=== PATIENT | female | born 1990 | race Caucasian/White ===

== ENCOUNTER 2016-10-02 14:42 | Observation (INO) | payer BC ==
[2016-10-02] MEDS ORDERED: Aspirin Low Dose CHEW TAB* 81 MG PO ONE (15:38)
[2016-10-02 16:31] LABS: Hematocrit 41 % (35-47); Hemoglobin 13.6 g/dl (12.0-16.0); Mean Corpuscular HGB Conc 33 g/dl (31-36); Mean Corpuscular Hemoglobin 30 pg (27-31); Mean Corpuscular Volume 91 fL (80-97); Mean Platelet Volume 9 um3 (7.4-10.4); Red Blood Count 4.51 10^6/ul (4.0-5.4); Red Cell Distribution Width 13 % (10.5-15); White Blood Count 10.2 10^3/ul (3.5-10.8)
[2016-10-02 16:51] LABS: ALT 17 U/L (7-52); AST 22 U/L (13-39); Albumin 4.9 g/dL (3.2-5.2); Alkaline Phosphatase 85 U/L (34-104); Anion Gap 6 mmol/L (2-11); BUN/Creatinine Ratio 24.4 (8-20); Blood Urea Nitrogen 19 mg/dL (6-24); CO2 Carbon Dioxide 27 mmol/L (22-32); Calcium 9.6 mg/dL (8.6-10.3); Chloride 102 mmol/L (101-111); EGFR African American 113.9 (>60); EGFR Non-African American 88.6 (>60); Globulin 3.4 g/dL (2-4); Glucose 101 mg/dL (70-100); Potassium 3.9 mmol/L (3.5-5.0); Sodium 135 mmol/L (133-145); Total Protein 8.3 g/dL (6.4-8.9); Troponin I 0.01 ng/mL (<0.04)
--- NOTE | 2016-10-02 16:53 | RAD ---
Indication: Chest pain. History of tetralogy of Fallot. 2 views of the chest are reviewed. Patient is status post pulmonary valve replacement. No mediastinal shift is noted. Heart is of normal size and configuration. Lung correia are clear. IMPRESSION: No active cardiopulmonary disease is noted.
[2016-10-02] MEDS ORDERED: Iohexol 350* (CONTRAST) 500 ML MDV IV ONE (18:37)
--- NOTE | 2016-10-02 18:55 | RAD ---
Indication: Chest pain, cardiac surgery. Contrast: Administered 59.9 ml of OMNIPAQUE 350 mgi/ml CTA of the chest was performed after IV contrast administration. Coronal and sagittal reconstructed images were obtained. The pulmonary arterial tree is well opacified. There is no evidence of any filling defects present to suggest pulmonary embolus. There is mild dilatation of the descending aorta measuring up to 3.5 x 3.8 cm. No evidence of aortic dissection is noted. The heart demonstrates no pericardial effusion. The patient is status post pulmonary valve replacement. There is no mediastinal or hilar adenopathy noted. The trachea and major bronchi appear patent. The lung correia demonstrate no evidence of alveolar consolidation. The visualized abdominal organs are grossly unremarkable. IMPRESSION: NO EVIDENCE OF PULMONARY EMBOLUS IS NOTED. NO EVIDENCE OF ALVEOLAR CONSOLIDATION IS NOTED. PROMINENT ECTASIA OF THE ASCENDING AORTA MEASURING 3.8 X 3.5 CM WHICH IS EXPECTED FOR A PATIENT WITH TETRALOGY OF FALLOT. NO EVIDENCE OF AORTIC DISSECTION IS NOTED.
[2016-10-02] MEDS ORDERED: Ibuprofen TAB* 600 MG PO ONE (21:30)
--- NOTE | 2016-10-02 21:59 | ED ---
Juan Randle Anna, scribed for JaniceubrohithiLuis MD on 10/02/16 at 1906 . HPI Chest Pain - HPI Summary HPI Summary: Patient is a 26 y/o female coming to [facility] presenting with the sudden onset of constant CP that began at 1330 this afternoon. She was on a walk at the time, which is normal for her. She describes the severity of the pain as 5/10. She denies SOB, dizziness. The pain is exacerbated by deep breathing or sitting forward. She is s/p pulmonary valve and artery repair on 07/18/2016. Her history is significant for tachycardia, junctional rhythms and tetraology of fallot. She is followed up in [place], and all her follow-up appointments after her surgery have not revealed any acute concerns. Patient medications were reviewed this visit. - History of Current Complaint Chief Complaint: EDChestWallPain Time Seen by Provider: 10/02/16 18:44 Hx Obtained From: Patient Onset/Duration: Started Hours Ago, Still Present Timing: Constant Initial Severity: Moderate Current Severity: Moderate Pain Intensity: 5 Pain Scale Used: 0-10 Numeric - Allergy/Home Medications Allergies/Adverse Reactions: Allergies Allergy/AdvReac Type Severity Reaction Status Date / Time No Known Allergies Allergy Verified 10/02/16 14:58 PMH/Surg Hx/FS Hx/Imm Hx Endocrine/Hematology History: Reports: Hx Thyroid Disease - hypothyroidism, Hx Anemia - Since surgery 07/18/2016 Denies: Hx Diabetes Cardiovascular History: Reports: Other Cardiovascular Problems/Disorders - tetralogy of fallot Denies: Hx Hypertension, Hx Pacemaker/ICD Respiratory History: Denies: Hx Asthma Musculoskeletal History: Denies: Hx Rheumatoid Arthritis, Hx Osteoporosis, Hx Scoliosis Sensory History: Denies: Hx Hearing Aid Neurological History: Denies: Hx Headaches, Other Neuro Impairments/Disorders Psychiatric History: Denies: Hx Panic Disorder - Surgical History Surgery Procedure, Year, and Place: OPEN HEART AT 4 MONTHS FOR VENTRICULAR COMMUNICATION,UMBILICAL HERNIA REPAIR 2010 Infectious Disease History: Denies: Traveled Outside the [place] in Last 30 Days - Family History Known Family History: Positive: Other - hypothyroidism - Social History Occupation: Employed Full-time Smoking Status (MU): Never Smoked Tobacco Have You Smoked in the Last Year: No Review of Systems Positive: Chest Pain Negative: Shortness Of Breath Neurological: Other - Denies dizziness All Other Systems Reviewed And Are Negative: Yes Physical Exam Triage Information Reviewed: Yes Vital Signs On Initial Exam: Initial Vitals Temp Pulse Resp BP Pulse Ox 98.5 F 54 18 131/87 100 10/02/16 14:53 10/02/16 14:53 10/02/16 14:53 10/02/16 14:53 10/02/16 14:53 Vital Signs Reviewed: Yes Appearance: Positive: Well-Appearing, No Pain Distress - nontoxic, Well- Nourished Skin: Positive: Warm, Skin Color Reflects Adequate Perfusion, Dry, Other - Well- healed mid-sternal scar Head/Face: Positive: Normal Head/Face Inspection Eyes: Positive: EOMI, ADRIEN, Conjunctiva Clear ENT: Positive: Pharynx normal, TMs normal Neck: Positive: Supple, Nontender Respiratory/Lung Sounds: Positive: Clear to Auscultation - good sounds bilaterally, Breath Sounds Present. Negative: Rales, Rhonchi, Wheezes Cardiovascular: Positive: RRR, Murmur - holosystolic murmur, S1, S2. Negative: Rub - None appreciated, Other - no gallop Abdomen Description: Positive: Nontender, Soft. Negative: Distended, Guarding, Other: - no rebound Bowel Sounds: Positive: Present Musculoskeletal: Positive: Normal, Strength/ROM Intact Neurological: Positive: Normal, Sensory/Motor Intact, Alert, Oriented to Person Place, Time. Negative: Cerebellar Dysfunction Psychiatric: Positive: Affect/Mood Appropriate Diagnostics - Vital Signs Vital Signs Temp Pulse Resp BP Pulse Ox 10/02/16 16:38 98.1 F 58 18 110/61 100 10/02/16 14:53 98.5 F 54 18 131/87 100 - Laboratory Lab Results: Lab Results 10/02/16 10/02/16 10/02/16 Range/Units 16:12 16:12 16:12 WBC 10.2 (3.5-10.8) 10^3/ul RBC 4.51 (4.0-5.4) 10^6/ul Hgb 13.6 (12.0-16.0) g/dl Hct 41 (35-47) % MCV 91 (80-97) fL MCH 30 (27-31) pg MCHC 33 (31-36) g/dl RDW 13 (10.5-15) % Plt Count 234 (150-450) 10^3/ul MPV 9 (7.4-10.4) um3 Neut % (Auto) 71.4 (38-83) % Lymph % (Auto) 18.7 L (25-47) % [place] % (Auto) 6.0 (1-9) % Eos % (Auto) 3.0 (0-6) % Baso % (Auto) 0.9 (0-2) % Absolute Neuts (auto) 7.3 (1.5-7.7) 10^3/ul Absolute Lymphs (auto) 1.9 (1.0-4.8) 10^3/ul Absolute Monos (auto) 0.6 (0-0.8) 10^3/ul Absolute Eos (auto) 0.3 (0-0.6) 10^3/ul Absolute Basos (auto) 0.1 (0-0.2) 10^3/ul Absolute Nucleated RBC 0.01 10^3/ul Nucleated RBC % 0.1 Sodium 135 (133-145) mmol/L Potassium 3.9 (3.5-5.0) mmol/L Chloride 102 (101-111) mmol/L Carbon Dioxide 27 (22-32) mmol/L Anion Gap 6 (2-11) mmol/L BUN 19 (6-24) mg/dL Creatinine 0.78 (0.51-0.95) mg/dL Est GFR ( Amer) 113.9 (>60) Est GFR (Non-Af Amer) 88.6 (>60) BUN/Creatinine Ratio 24.4 H (8-20) Glucose 101 H (70-100) mg/dL Lactic Acid 0.6 (0.5-2.0) mmol/L Calcium 9.6 (8.6-10.3) mg/dL Total Bilirubin 0.50 (0.2-1.0) mg/dL AST 22 (13-39) U/L ALT 17 (7-52) U/L Alkaline Phosphatase 85 (34-104) U/L Troponin I 0.01 (<0.04) ng/mL Total Protein 8.3 (6.4-8.9) g/dL Albumin 4.9 (3.2-5.2) g/dL Globulin 3.4 (2-4) g/dL Albumin/Globulin Ratio 1.4 (1-3) Result Diagrams: 10/02/16 16:12 10/02/16 16:12 Lab Statement: Any lab studies that have been ordered have been reviewed, and results considered in the medical decision making process. - Radiology CXR Xray Interpretation: No Acute Changes Radiology Interpretation Completed By: Radiologist - CT Chest CTA CT Interpretation: No Acute Changes CT Interpretation Completed By: Radiologist - IMPRESSION: NO EVIDENCE OF PULMONARY EMBOLUS IS NOTED. NO EVIDENCE OF ALVEOLAR CONSOLIDATION IS NOTED. PROMINENT ECTASIA OF THE ASCENDING AORTA MEASURING 3.8 X 3.5 CM WHICH IS EXPECTED FOR A PATIENT WITH TETRALOGY OF FALLOT. NO EVIDENCE OF AORTIC DISSECTION IS NOTED. - EKG 1446 Cardiac Rate: Bradycardia - 48 bpm EKG Rhythm: Sinus Bradycardia EKG Interpretation: RBBB. No acute ischemic changes. Re-Evaluation - Re-Evaluation First Eval Re-Evaluation Time: 20:29 Comment: Discussed results and plan of care with patient. Patient is agreeable with plan. Second Eval Re-Evaluation Time: 21:12 Comment: Discussed updated plan following conversation with Dr. Levy, bond broker. Patient is agreeable with plan. Chest Pain Course/Dx - Course Assessment/Plan: Patient is a 26 y/o female coming to [facility] presenting with the sudden onset of constant CP that began at 1330 this afternoon. Labs reveal BUN/ Creatinine ratio of 24.4 and glucose of 101. Initial troponin is 0.01. Repeat troponin is 0.05. EKG reveals SB at 48 bpm with RBBB and no acute ischemic changes. CXR reveals no acute changes. Chest CTA reveals no evidence of pulmonary embolus or alveolar consolidation. Prominent ectasia of the ascending aorta is expected. No evidence of aortic dissection. Discussed care with Dr. Buchanan (patient's bond broker, [facility]) at 1957. He recommends NSAID with echocardiogram along with a third troponin. If the echo shows no effusion and the troponin is stable, the patient can be discharged to follow up with him. Discussed care with Dr. Levy (bond broker) at 2102. Discussed need for echocardiography. Patient is hemodynamically stable, and he would rather have the echo techs complete this in the morning. Patient will be placed in observation pending echo and another set of cardiac enzymes. Discussed patient care with Dr. Hankins (hospitalist) at 2109. Agrees to admit patient for observation. - Diagnoses Provider Diagnoses: Chest pain, Congenital heart disease - Provider Notifications Discussed Care Of Patient With: Dr. Buchanan (patient's bond broker, [facility]) at 1957. He recommends NSAID with echocardiogram along with a third troponin. If the echo shows no effusion and the troponin is stable , the patient can be discharged to follow up with him. Dr. Levy (bond broker) at 2102. Discussed need for echocardiography. Patient is hemodynamically stable , and he would rather have the echo techs complete this in the morning. Patient will be placed in observation pending echo and another set of cardiac enzymes. Discussed patient care with Dr. Hankins (hospitalist) at 2109. Agrees to admit patient for observation. Discharge - Discharge Plan Condition: Fair Disposition: ADMITTED TO [facility] Referrals: Jerald Martinez MD [Primary Care Provider] - The documentation as recorded by the Juan benitez Anna accurately reflects the service I personally performed and the decisions made by Rg christy Afoma Frances, MD.
[2016-10-02 22:09] LABS: Erythrocyte Sed Rate 9 mm/Hr (0-14)
--- NOTE | 2016-10-02 23:24 | HP ---
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 She denies SOB, fever, N/V, palpitations, light-headedness, or other issues. She has been taking allergy medications recently for Spring allergies, but denies recent illness or infection. After an hour of the pain not relenting she became concerned enough to present for evaluation. Work up reveals stable vitals, essentially normal labs including a CRP <1. Initial troponin was 0.01 with follow up of 0.05 and 3rd result of 0.01 indicating a lab error on the 2nd draw. ECG is sinus RBBB bradycardia rate 48, no ischemia, no comparison. Dr Diez spoke with Dr López, waste recycler at [facility] who reviewed her case and was comfortable with her being discharged after an ECHO did not show significant pericardial effusion. Dr Levy was then consulted, but preferred an official US in the AM as opposed to coming in to perform a bedside exam. As such she will be observe overnight on telemetry. 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 recent PA repair & PV replacement : sinus & junctional tachycardia : hypothyroidism Ambulatory Orders Aspirin [Aspirin Adult Low Strengt] 81 mg PO BEDTIME 10/02/16 Ferrous Sulfate [Fe Tabs] 325 mg PO BEDTIME 10/02/16 Levothyroxine TAB* [Synthroid TAB*] 75 mcg PO 0600 10/02/16 Allergies No Known Allergies Allergy (Verified 10/02/16 14:58) PSurgHx Tetrology of Fallot repair Pulmonary artery repair and bovine pulmonary valve replacement 07/2016 L knee arthroscopy umbilical hernia repair SocHx: no tobacco or recreational drugs, mild alcohol; works for [employer] , has been accepted to [employer] in [place] & is moving to start soon; lives with her boyfriend, no children; her cardiac history has not restricted her activities, she reports always being able to keep up with other children and friends, 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; full code status FamHx: Father: asthma ROS: as above, otherwise reviewed and all were negative Constitutional: NAD, normally developed, well-nourished white female vitals: Vital Signs Temp 36.6 C 10/02/16 19:13 Pulse 59 10/03/16 00:01 Resp 19 10/03/16 00:01 BP 104/55 10/03/16 00:01 Pulse Ox 98 10/03/16 00:01 Intake & Output 10/02/16 10/02/16 10/03/16 11:59 23:59 11:59 Weight 58.06 kg HEENM: atraumatic; sclera/conjunctiva: non-icteric/clear; hearing: clinically intact; oropharynx: clear, mucosa moist Neck: soft tissue: non-tender; thyroid: normal Pulmonary: clear to auscultation bilaterally, good aeration, no accessory muscle use CV: BR/RR, normal S1S2, no friction rubs appreciated at this time, no carotid bruit, no jugular venous distention, 2+ B DP/PT, no edema Abdominal: soft, non-distended, non-tender, no rebound/guarding/rigidity, normoactive bowel sounds, no hepatosplenomegaly or masses, no costovertebral angle tenderness Musculoskeletal: general: grossly intact; gait: stable Integumental: healthy healing sternotomy incision; normal appearance and texture of exposed skin Psychiatric orientation: AA&O to PPS affect: calm mood: pleasant eye contact: good content: reliable responses: timely insight: good Testing: Lab Results 10/02/16 10/02/16 10/02/16 Range/Units 16:12 16:12 16:12 WBC 10.2 (3.5-10.8) 10^3/ul RBC 4.51 (4.0-5.4) 10^6/ul Hgb 13.6 (12.0-16.0) g/dl Hct 41 (35-47) % MCV 91 (80-97) fL MCH 30 (27-31) pg MCHC 33 (31-36) g/dl RDW 13 (10.5-15) % Plt Count 234 (150-450) 10^3/ul MPV 9 (7.4-10.4) um3 Neut % (Auto) 71.4 (38-83) % Lymph % (Auto) 18.7 L (25-47) % [place] % (Auto) 6.0 (1-9) % Eos % (Auto) 3.0 (0-6) % Baso % (Auto) 0.9 (0-2) % Absolute Neuts (auto) 7.3 (1.5-7.7) 10^3/ul Absolute Lymphs (auto) 1.9 (1.0-4.8) 10^3/ul Absolute Monos (auto) 0.6 (0-0.8) 10^3/ul Absolute Eos (auto) 0.3 (0-0.6) 10^3/ul Absolute Basos (auto) 0.1 (0-0.2) 10^3/ul Absolute Nucleated RBC 0.01 10^3/ul Nucleated RBC % 0.1 ESR 9 (0-14) mm/Hr Sodium 135 (133-145) mmol/L Potassium 3.9 (3.5-5.0) mmol/L Chloride 102 (101-111) mmol/L Carbon Dioxide 27 (22-32) mmol/L Anion Gap 6 (2-11) mmol/L BUN 19 (6-24) mg/dL Creatinine 0.78 (0.51-0.95) mg/dL Est GFR ( Amer) 113.9 (>60) Est GFR (Non-Af Amer) 88.6 (>60) BUN/Creatinine Ratio 24.4 H (8-20) Glucose 101 H (70-100) mg/dL Lactic Acid 0.6 (0.5-2.0) mmol/L Calcium 9.6 (8.6-10.3) mg/dL Total Bilirubin 0.50 (0.2-1.0) mg/dL AST 22 (13-39) U/L ALT 17 (7-52) U/L Alkaline Phosphatase 85 (34-104) U/L Troponin I 0.01 (<0.04) ng/mL C-Reactive Protein < 1.00 (< 5.00) mg/L Total Protein 8.3 (6.4-8.9) g/dL Albumin 4.9 (3.2-5.2) g/dL Globulin 3.4 (2-4) g/dL Albumin/Globulin Ratio 1.4 (1-3) Beta HCG, Quant < 0.60 mIU/mL 10/02/16 10/02/16 Range/Units 19:15 21:37 WBC (3.5-10.8) 10^3/ul RBC (4.0-5.4) 10^6/ul Hgb (12.0-16.0) g/dl Hct (35-47) % MCV (80-97) fL MCH (27-31) pg MCHC (31-36) g/dl RDW (10.5-15) % Plt Count (150-450) 10^3/ul MPV (7.4-10.4) um3 Neut % (Auto) (38-83) % Lymph % (Auto) (25-47) % [place] % (Auto) (1-9) % Eos % (Auto) (0-6) % Baso % (Auto) (0-2) % Absolute Neuts (auto) (1.5-7.7) 10^3/ul Absolute Lymphs (auto) (1.0-4.8) 10^3/ul Absolute Monos (auto) (0-0.8) 10^3/ul Absolute Eos (auto) (0-0.6) 10^3/ul Absolute Basos (auto) (0-0.2) 10^3/ul Absolute Nucleated RBC 10^3/ul Nucleated RBC % ESR (0-14) mm/Hr Sodium (133-145) mmol/L Potassium (3.5-5.0) mmol/L Chloride (101-111) mmol/L Carbon Dioxide (22-32) mmol/L Anion Gap (2-11) mmol/L BUN (6-24) mg/dL Creatinine (0.51-0.95) mg/dL Est GFR ( Amer) (>60) Est GFR (Non-Af Amer) (>60) BUN/Creatinine Ratio (8-20) Glucose (70-100) mg/dL Lactic Acid (0.5-2.0) mmol/L Calcium (8.6-10.3) mg/dL Total Bilirubin (0.2-1.0) mg/dL AST (13-39) U/L ALT (7-52) U/L Alkaline Phosphatase (34-104) U/L Troponin I 0.05 H* 0.01 (<0.04) ng/mL C-Reactive Protein (< 5.00) mg/L Total Protein (6.4-8.9) g/dL Albumin (3.2-5.2) g/dL Globulin (2-4) g/dL Albumin/Globulin Ratio (1-3) Beta HCG, Quant mIU/mL ECG, personally reviewed: sinus RBBB bradycardia rate 48, no ischemia, no comparison CXR, personally reviewed: IMPRESSION: No active cardiopulmonary disease is noted. CTA chest, personally reviewed: IMPRESSION: NO EVIDENCE OF PULMONARY EMBOLUS IS NOTED. NO EVIDENCE OF ALVEOLAR CONSOLIDATION IS NOTED. PROMINENT ECTASIA OF THE ASCENDING AORTA MEASURING 3.8 X 3.5 CM WHICH IS EXPECTED FOR A PATIENT WITH TETRALOGY OF FALLOT. NO EVIDENCE OF AORTIC DISSECTION IS NOTED. Impression: 26F HX Tetrology of Fallot repair 1989, PA repair and bovine PV replacement 07/2016 presenting with chest pain and concern for pericarditis DIAGNOSIS & PLAN Primary chest pain r/o pericarditis : Loius Levy MD cardiology consulted by ED, will eval in AM : check ECHO in AM : added CRP to ED labs, result negative : telemetry : NSAIDS for pain : supportive care Secondary hypothyroidism : continue levothyroxine recurrent laryngeal nerve injury : continue outpatient speech therapy Admission Rational: CDU observation for r/o pericarditis DVTp: NIAD Code Status: full
[2016-10-02] MEDS ORDERED: Acetaminophen TAB* 325 MG PO PRN (23:27)
[2016-10-02] MEDS ORDERED: Ondansetron INJ* 2 MG/ML VIAL IV PRN (23:28)
[2016-10-02] MEDS ORDERED: Melatonin (NF) 3 MG TAB PO PRN (23:28)
[2016-10-02] MEDS ORDERED: Ketorolac INJ* 15 MG/ML 1 ML VIAL IV PRN (23:28)
[2016-10-02] MEDS ORDERED: Morphine INJ* 2 MG/ML 1 ML SYRINGE IV PRN (23:28)
[2016-10-02 23:46] LABS: C Reactive Protein < 1.00 mg/L (< 5.00)
[2016-10-03] MEDS: Omeprazole CAP* 20 MG PO SCH ×2 (05:49→05:50)
[2016-10-03] MEDS ORDERED: Levothyroxine TAB* 75 MCG TAB PO SCH (06:15)
--- NOTE | 2016-10-03 08:51 | PN ---
Subjective - Subjective Reason for Note: Progress Note History: Brenda Ngo is a 26 year old primary care patient at my office. I have gone over her presentation with the patient and with Dr. Aldo Stanley's admitting history and physical. She has a history of tetralogy of Fallot and had cardiac surgery as an . She had a second surgery 07/18/[address] López at [facility]. They placed a pulmonic prosthetic valve and "unkinked" her pulmonary artery. She has noticed much more energy since the surgery. 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 This is improving. She has been back at work for 1 month. She went for a longer walk than usual at lunchtime at [facility]. After this she developed 5/10 chest pain that radiated around both sides. 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 It was not associated with nausea, diaphoresis, palpitations, light headedness. It was exacerbated by sitting forward, positional changes and coughing. The pain went away at 2 am this morning. She has had no edema, fever, sweats, paroxysmal nocturnal dyspnea, cyanotic attacks, orthopnea. She is feeling well. 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 Troponin I above reference range (Acute) R74.8 History of hepatitis C (Chronic) Z86.19 Primary hypothyroidism (Chronic) E03.9 Pulmonary valve replaced (Chronic) Z95.2 Recurrent laryngeal nerve palsy (Chronic) J38.00 Right bundle branch block (Chronic) I45.10 Sinus bradycardia (Chronic) R00.1 Tetralogy of Fallot (Chronic) Q21.3 Current Medications: Current Medications Acetaminophen (Tylenol Tab*) 650 mg PO Q6H PRN PRN Reason: FEVER/PAIN Aspirin (Aspirin Low Dose Tab*) 81 mg PO BEDTIME SON Ketorolac Tromethamine (Toradol Inj*) 15 mg IV Q6H PRN PRN Reason: PAIN Levothyroxine Sodium (Synthroid Tab*) 75 mcg PO 0600 [facility] Last Admin: 10/03/16 06:19 Dose: 75 mcg Melatonin (Melatonin (Nf)) 3 mg PO BEDTIME PRN; Protocol PRN Reason: Sleep Morphine Sulfate (Morphine Inj (Syringe)*) 2 mg IV Q4H PRN PRN Reason: PAIN - MILD Omeprazole (Prilosec Cap*) 20 mg PO DAILY@0600 [facility] Last Admin: 10/03/16 05:50 Dose: Not Given Ondansetron HCl (Zofran Inj*) 4 mg IV Q6H PRN PRN Reason: NAUSEA Home Medications: Home Medications Medication Instructions Recorded Confirmed Type Aspirin [Aspirin Adult Low Strengt] 81 mg PO BEDTIME 10/02/16 10/02/16 History Ferrous Sulfate [Fe Tabs] 325 mg PO BEDTIME 10/02/16 10/02/16 History Levothyroxine TAB* [Synthroid TAB*] 75 mcg PO 0600 10/02/16 10/02/16 History Allergies: Allergies Allergy/AdvReac Type Severity Reaction Status Date / Time No Known Allergies Allergy Verified 10/02/16 14:58 Objective - Vital Signs Vital Signs: Vital Signs 10/02/16 10/03/16 10/03/16 23:59 00:00 00:01 Temperature Pulse Rate 62 59 Respiratory 18 14 19 Rate Blood Pressure 104/55 (mmHg) O2 Sat by Pulse 98 98 Oximetry 10/03/16 10/03/16 10/03/16 00:07 00:09 00:20 Temperature 98.6 F 97.7 F Pulse Rate 75 62 Respiratory 15 18 Rate Blood Pressure 112/66 (mmHg) O2 Sat by Pulse 98 99 Oximetry 10/03/16 02:52 Temperature 97.5 F Pulse Rate 41 Respiratory 16 Rate Blood Pressure 102/60 (mmHg) O2 Sat by Pulse 100 Oximetry - Intake and Output Intake and Output: Intake & Output 09/30/16 10/01/16 10/02/16 10/03/16 11:59 11:59 11:59 11:59 Intake Total 0 Balance 0 Weight 124 lb 3.2 oz Intake: Oral 0 Other: # Bowel Movements 0 # Voids 0 Intake and Output Start: 10/02/16 23: 59 Freq: DAILY@0600,1400,2200 Status: Active Document 10/03/16 06:00 [id number] (Rec: 10/03/16 06:[id number] [facility]-[id number]) - Physical Exam General: No Cyanosis, No Anemia, No Jaundice, No Clubbing Skin: Normal: Rash Lungs and Chest: Yes: Chest Expansion Full, Chest Expansion Symetrica, Percussion Note Resonant, Vessicular Breath Sounds. No: Crackles, Wheezes Heart Rate and Rhythm: Regular JVP: Not Elevated Additional Cardiovascular: Yes: Normal Heart Sounds. No: Heart Murmur, Rub, Pedal Edema Abdominal Exam: Yes: Soft, Bowel Sounds Present. No: Distention, Rigidity, Abdominal Tenderness Results - Results Lab Results: Laboratory Tests 10/02/16 10/02/16 10/02/16 16:12 16:12 19:15 WBC 10.2 Hgb 13.6 Hct 41 Plt Count 234 ESR 9 Troponin I 0.01 0.05 H* C-Reactive Protein < 1.00 10/02/16 21:37 WBC Hgb Hct Plt Count ESR Troponin I 0.01 C-Reactive Protein Radiology Results: Patient Name: BRENDA NGO Medical Record#: [id number] Ordering Physician: Kenn Moulton MD Acct.#: [id number] : 1990 Age: 26 Sex: F Location: EMERGENCY DEPARTMENT Exam Date: 10/02/161537 ADM Status: [facility] ER Order Information: CTA CHEST Accession Number: [id number] CPT: 02294 Indication: Chest pain, cardiac surgery. Contrast: Administered 59.9 ml of OMNIPAQUE 350 mgi/ml CTA of the chest was performed after IV contrast administration. Coronal and sagittal reconstructed images were obtained. The pulmonary arterial tree is well opacified. There is no evidence of any filling defects present to suggest pulmonary embolus. There is mild dilatation of the descending aorta measuring up to 3.5 x 3.8 cm. No evidence of aortic dissection is noted. The heart demonstrates no pericardial effusion. The patient is status post pulmonary valve replacement. There is no mediastinal or hilar adenopathy noted. The trachea and major bronchi appear patent. The lung correia demonstrate no evidence of alveolar consolidation. The visualized abdominal organs are grossly unremarkable. IMPRESSION: NO EVIDENCE OF PULMONARY EMBOLUS IS NOTED. NO EVIDENCE OF ALVEOLAR CONSOLIDATION IS NOTED. PROMINENT ECTASIA OF THE ASCENDING AORTA MEASURING 3.8 X 3.5 CM WHICH IS EXPECTED FOR A PATIENT WITH TETRALOGY OF FALLOT. NO EVIDENCE OF AORTIC DISSECTION IS NOTED. <Electronically signed by Mitzy Vasquez MD in OV> 10/02/161850 Dictated By: Mitzy Vasquez MD Dictated Date/Time: 10/02/161850 Transcribed Date/Time: 10/02/161847 Copy to: CC:Jerald Martinez MD; Luis Diez MD; Kenn Moulton MD Imaging - [facility] Imaging - [facility] Imaging - [facility] [address] [address] ph [phone]) ph ([phone]) ph ([phone]) 1 of EKG Report: EKG - sinus bradycardia, right bundle branch block (I reviewed the EKG) Assessment - Problem List Assessment: Patient Problems Chest pain (Acute) Bayron's syndrome (Acute) Troponin I above reference range (Acute) History of hepatitis C (Chronic) Primary hypothyroidism (Chronic) Pulmonary valve replaced (Chronic) Recurrent laryngeal nerve palsy (Chronic) Right bundle branch block (Chronic) Sinus bradycardia (Chronic) Tetralogy of Fallot (Chronic) Plan: Chest pain (Acute)/Bayron's syndrome (Acute)/Troponin I above reference range (Acute) From the history it is likely this is Bayron's syndrome. She doesn' t have a pleural effusion and we are awaiting the results of this morning's transthoracic echocardiogram to determine if this is pericarditis. I note she has a slight bump in her troponin I levels- the 0.05 reading is likely a lab error. I have spoke to Dr. Lisa who will look at the transthoracic echocardiogram and consult on the patient as we don't want to prematurely close our minds to the complex pathophysiological possibilities for this patient. I note her WBC, CRP and Sed rate are not elevated - this surprises me as they are mostly elevated with this syndrome. Dr. Lisa will work through a more extensive differential diagnosis. History of hepatitis C (Chronic) secondary diagnosis Primary hypothyroidism (Chronic) secondary diagnosis - I will check her TSH Pulmonary valve replaced (Chronic) secondary diagnosis Recurrent laryngeal nerve palsy (Chronic) secondary diagnosis Right bundle branch block (Chronic) secondary diagnosis Sinus bradycardia (Chronic) secondary diagnosis Tetralogy of Fallot (Chronic) secondary diagnosis I spoke to the patient and her mother. She agrees with the plan. She hopes to be discharged today.
[2016-10-03] MEDS ORDERED: Aspirin TAB* 325 MG PO PRN (10:46)
--- NOTE | 2016-10-03 16:29 | PN ---
Progress Note - Progress Note Note: Discussion with Dr. Kassandra Lisa: Less likely to be Bayron's syndrome as sed rate/CRP normal. Could be musculo-skeletal. Could be GERD. She states the transthoracic echocardiogram is fine - sending a copy to her upholsterer outside at [facility]. Recommends she can go home and use NSAID sparingly for pain.
[2016-10-03 16:51] VITALS: BP 107/57
--- NOTE | 2016-10-03 17:54 | ECHO ---
Patient: BRENDA NGO [facility] Rec#: [id number] : 1990 Date: 10/03/2016 Age: 26y Height: 167.64 cm / 66.0 in Weight: 58.06 kg / 128.0 lbs Sex: F BSA: 1.65 Room#: 439 Admit Date#: 10/02/2016 Type: Inpatient Referring: Aldo Stanley MD Reading: Kassandra Lisa MD [employer] Line: Talia Montesinos,RDCS,RDMS CC: Jerald Martinez MD Transthoracic Echocardiogram Indication: Chest Pain BP: 102/61 HR: 48 Rhythm: Bradycardia Indications Chest Pain Findings History: PV replacement (bovine), PA repair, Tetrology of Fallot. Technical Comments: The study quality is good. Left Ventricle: The left ventricular chamber size is normal. There is no left ventricular hypertrophy. The estimated ejection fraction is 50-55%. Ventricular septal wall motion has a post-operative appearance. Echo bright in the region of the membranous septum and hypokinesis consistant with VSD repair. Normal left ventricular diastolic filling is observed. Left Atrium: The left atrial chamber size is normal. Right Ventricle: The right ventricle is mildly dilated. The right ventricular global systolic function is mildly reduced. Right Atrium: The right atrial cavity size is normal. Aortic Valve: There is no evidence of aortic valve thickening. Systolic excursion of the aortic valve is normal. There is a trace of aortic regurgitation. There is no evidence of aortic stenosis. Mitral Valve: The mitral valve leaflets do not appear thickened. Mitral valve leaflet mobility appears normal. There is a trace of mitral regurgitation. There is no evidence of mitral stenosis. Tricuspid Valve: The tricuspid valve leaflets are not thickened. There is mild tricuspid regurgitation. The right ventricular systolic pressure is estimated at 37 mmHg. There is evidence of mild pulmonary hypertension. Pulmonic Valve: There is mild pulmonic regurgitation. A bio-prosthetic pulmonic valve is present. The bio-prosthetic pulmonic valve appears to be functioning normally. Pericardium: There is no significant pericardial effusion. Aorta: The aortic root appears normal. There is no dilatation of the aortic arch. Pulmonary Artery: The main pulmonary artery appears normal. Venous: The inferior vena cava appears normal. There is a greater than 50% respiratory change in the inferior vena cava dimension. Conclusions The left ventricular chamber size is normal. Ventricular septal wall motion has a post-operative appearance, otherwise normal systolic function. The estimated ejection fraction is 50-55%. Normal left ventricular diastolic filling is observed. The right ventricular global systolic function is mildly reduced. The right ventricle is mildly dilated. There is a trace of aortic regurgitation, leaflets thin with good excursion. There is a trace of mitral regurgitation. There is mild tricuspid regurgitation. A bio-prosthetic pulmonic valve is present with mild pulmonic regurgitation (central), peak velocity 1.7 m/s. The right ventricular systolic pressure is estimated at 37 mmHg, mildly elevated. No abnormal pericardial fluid collection noted. No evidence of inflow or outflow respiratory variation to suggest constrictive physiology: Resp variation MV is 5% LVOT is 4% TV is 8%. Normal IVC diameter with greater than 50% respiratory variation. Prior echos not available to compare. Measurements Name Value Normal Range RVIDd (AP) 2D 3.4 cm (0.9 - 2.6) RVDdMajor (2D) 4.3 cm (2.2 - 4.4) RAd ISD 4CH 3.6 cm (3.4 - 4.9) RA (A4C)W 3.3 cm (2.9 - 4.6) IVSd (2D) 1 cm (0.6 - 1) LVPWd (2D) 1 cm (0.6 - 1) LVIDd (2D) 4.2 cm (3.6 - 5.4) LVIDs (2D) 3.1 cm - LV FS (2D) 26 % (25 - 45) Aortic Annulus 2.2 cm (1.4 - 2.6) Ao root diameter (2D) 3.5 cm (2.1 - 3.5) Ascending Ao 3.2 cm (2.1 - 3.4) Aortic arch 2.6 cm (1.8 - 3.4) LA dimension (AP) 2D 3.6 cm (2.3 - 3.8) LAd ISD 4CH 4.8 cm (2.9 - 5.3) LA ISD 4CH W 4.1 cm (2.5 - 4.5) Name Value Normal Range LA ESV SP 4CH (A/L) 52.43 ml - LA ESV SP 2CH (A/L) 54.96 ml - LA ESV BP (A/L) 54.2 ml - LA ESV BP (A/L) index 33 ml/m2 - LA ESV SP 4CH (MOD) 48.48 ml - LA ESV SP 2CH (MOD) 52.55 ml - Name Value Normal Range MV E-wave Vmax 1.2 m/sec - MV deceleration time 198 msec - MV A-wave Vmax 0.4 m/sec - MV E:A ratio 3 ratio - P. vein S-wave Vmax 0.4 m/sec - P. vein D-wave Vmax 0.9 m/sec - P. vein S:D Vmax ratio 0.5 ratio - P. vein A-wave duration 106.1 msec - LV septal e' Vmax 0.08 m/sec - LV lateral e' Vmax 0.13 m/sec - LV E:e' septal ratio 15 ratio - LV E:e' lateral ratio 9.2 ratio - Name Value Normal Range AV Vmax 1.1 m/sec - AV VTI 26 cm - AV peak gradient 5 mmHg - AV mean gradient 2.9 mmHg - LVOT Vmax 1 m/sec - LVOT VTI 21.8 cm - LVOT peak gradient 4 mmHg - LVOT mean gradient 2 mmHg - CATHRYN Vmax 1.1 m/sec - Name Value Normal Range MV Vmax 1.4 m/sec - MV VTI 39 cm - MV peak gradient 8 mmHg - MV mean gradient 1 mmHg - MV PHT 67 msec - MVA (PHT) 3.3 cm2 - Name Value Normal Range TR Vmax 2.7 m/sec - TR peak gradient 29 mmHg - RAP 8 mmHg - RVSP 37 mmHg - IVC diameter 1.6 cm - Name Value Normal Range PV Vmax 1.7 m/sec - PV peak gradient 11.6 mmHg - RVOT diameter 1.9 cm -
[2016-10-03] MEDS ORDERED: Aspirin Low Dose CHEW TAB* 81 MG PO SCH (21:00)
--- NOTE | 2016-10-04 01:31 | CONS ---
CONSULTATION REPORT: DATE OF CONSULT: 10/03/16 REASON FOR CONSULTATION: Chest pain and congenital heart disease. HISTORY OF PRESENT ILLNESS: Francisca Liriano is a very pleasant 26-year-old young woman with a tetralogy of Fallot, she distantly underwent repair in 1989, but more recently in July, she underwent a pulmonic valve replacement and pulmonary artery repair. This was complicated by recurrent laryngeal nerve injury and she was left with a hoarse voice and she also had sinus bradycardia with a junctional rhythm and according to her mother, some nonsustained ventricular tachycardia postoperatively. Most recently, the patient has been back to work and feeling well. Yesterday, she had lunch and was walking with a friend. The walk went fine until she developed some low chest pain/epigastric discomfort that radiated across the lower chest and she points to the diaphragm area and had a positional and pleuritic quality, it was worse with deep inspiration and deep expiration and was worse leaning forward or lying flat. She felt best just sitting upright. This persisted and she thinks it lasted almost 12 hours from 1 in the afternoon to 1 at night. The discomfort seemed to respond to a combination of nonsteroidals and morphine. Once the pain went away approximately 1 in the morning, it has not recurred. She has been walking around the floor of the hospital and feeling well. She denies recent medication adjustments. She said she had a little bit of chills in the waiting room, but has not had anything since. She denies any coughing, fevers, hematuria, or dysuria. She has not had a bowel movement today, but was not constipated or having changes in bowel habits prior to admission. The patient's lunch was made by herself, chicken and rice, and she feels was not high on salt. The night before, she did have some canned soup. There was no change in her vocal quality. PAST MEDICAL HISTORY: Tetralogy of Fallot, initial repair in 1989, pulmonary artery repair and Bovine pulmonic valve replacement in July 2016, hepatitis C secondary to blood transfusion from 1989 tetralogy surgery, recurrent laryngeal nerve injury and unilateral vocal cord paralysis from her July 2016 surgery, hypothyroid disease. MEDICATIONS: The patient's outpatient medications included: 1. Aspirin 81 mg a day. 2. Levothyroxine 75 mcg a day. 3. Iron sulfate 325 mg a day. The patient's inpatient medications have included: 1. Tylenol p.r.n. 2. Aspirin 325 mg t.i.d. p.r.n. and 81 mg q.h.s. 3. Motrin 600 mg in the ED once. 4. Toradol 15 mg q.6 hours p.r.n. pain (not required). 5. Melatonin p.r.n. sleep. 6. Ondansetron p.r.n. 7. Omeprazole 20 mg a day, not given. 8. Levothyroxine 75 mcg a day. ALLERGIES: She has no known drug allergies. FAMILY HISTORY: Significant in that her father has angina. SOCIAL HISTORY: The patient is a nonsmoker and rare alcohol intake, none recently. She works at the local [employer] in exercise [employer], very physically active up until her most recent surgery. Lives with her boyfriend. REVIEW OF SYSTEMS: See history of present illness. Other review of systems was performed and unremarkable. PHYSICAL EXAM: Vital Signs: On exam, the patient is 5 feet 6 inches, weighs 124 pounds with a BMI of 20. Blood pressure was 98/55, heart rate sinus rhythm 40s to 70s, temperature 94.7, oxygen saturation on room air 99%, respiratory rate 16. General Appearance: Lean, fit-appearing young woman, in no acute distress. Psychologically pleasant and cooperative. Neurological: Awake, alert and oriented to person, place, and time. Cranial nerves II through XII intact. Grossly normal sensory and motor function in the upper and lower extremities and gait was normal. Skin: Warm and dry. Midline sternotomy scar is well healed. No cyanosis. HEENT: Pupils are equal and round. Mucous membranes were moist. Voice was hoarse. Neck: Neck veins without appreciable increased JVP. Palpable symmetrical carotid pulses, free of bruits. Lungs: Breath sounds were clear with good effort. No wheezing, rales, or rhonchi. No diminished breath sounds. Coronary: S1, S2. Physiologically split second heart sound with prominent P2. No rubs appreciated. No murmurs, systolic or diastolic. Kussmaul's sign is negative. Abdomen: Flat. Active bowel sounds. Soft, nontender. No epigastric discomfort. No appreciable hepatomegaly. Extremities: Lower extremities had palpable femoral pulses that were symmetrical bilaterally with a left-sided femoral artery bruit. Right lower extremity slightly greater than the left. Posterior tibial pulses were palpable bilaterally, although the right is slightly weaker than the left ( history of bypass catheter in the right femoral artery in July). DIAGNOSTIC STUDIES/LAB DATA: A 12-lead ECG on admission, 10/02/16, shows sinus bradycardia with mild sinus arrhythmia at 48 beats a minute with a right bundle - branch block, unremarkable ST segments. Inverted T-waves, V1 and V2. EKG #2 done 10/03/16 at 2:00 in the morning shows junctional bradycardia at 37 beats a minute, QRS axis +60, incomplete right bundle-branch block, STs remain unremarkable. Mild inferior elevation, J-point type. Inverted T-waves, now progressing V1 through V3. EKG #3 done at 6:48 this morning shows sinus bradycardia, mild sinus arrhythmia at 44 beats a minute, QRS axis +60, normal AV conduction time, right bundle-branch block, and inverted T-waves V1 through V3. J-point type ST segments in the inferior leads, persistent and unchanged. Chest x-ray on admission showed no active disease. CT of the chest and thorax was negative for pulmonary embolus, ectasia of the ascending aorta, 3.8 x 3.5, no dissection. Transthoracic echo showed septal hypokinesis and dyssynchrony, small echo bright area consistent with old VSD repair, ejection fraction 50% to 55% with normal diastolic filling. The right ventricle showed mildly reduced systolic function, trace aortic insufficiency, trace mitral insufficiency, mild tricuspid insufficiency status post bioprosthetic pulmonic valve replacement with no evidence of stenosis and mild pulmonic insufficiency (central jet). PA pressure mildly elevated at 37 mmHg. Normal IVC diameter and collapse. Labs: White count 10.2, hemoglobin 13.6, and platelets 234. Sedimentation rate 9. C-reactive protein 0.01. Sodium 135, potassium 3.9, chloride 102, bicarb 27, BUN 19, creatinine 0.78, and glucose 101. Lactic acid 0.6. ALT of 17. BNP of 26. TSH 0.97. Beta hCG 0.6. Troponin #1 0.01, troponin #2 0.05, and troponin #3 0.01. IMPRESSION: In summary, Francisca Liriano is a 26-year-old woman with tetralogy of Fallot who underwent her initial repair in infancy, but within the last 6 to 8 weeks underwent surgery to the pulmonary artery and pulmonic valve replacement, complicated by sick sinus syndrome, injury to the recurrent laryngeal nerve, femoral artery bruits, and according to her mother, some nonsustained ventricular tachycardia initially. The patient now presents with pleuritic and positional chest pain that occurred walking after a meal. There is significant differentials for this, I do not see evidence of post- pericardiectomy syndrome/Bayron, no pericardial fluid collection, and no elevation in inflammatory markers. She does have some EKG changes, but I do not have old EKGs to compare. If the patient had had tachyarrhythmias or risk for embolic phenomena, we could be concerned about an embolic injury to one of the coronary arteries but the quality of pain is atypical, the mild elevation of just 1 troponin would not fit with this. I have a low suspicion of ischemic disease. The patient is at potential risk for deep venous thrombosis and pulmonary emboli postoperatively, but the CT angiogram does not support this. She has been very active and is not overweight. With the patient's history of 2 open heart surgeries, she would be at risk for constrictive physiology, but this was not appreciated on echo when specifically looked for. The patient could have reflux-induced bronchospasm and although her symptoms responded without taking a proton pump inhibitor, I think this is still in the differential as this occurred after eating or with exercise, which can reduce the lower esophageal sphincter tone. This could be musculoskeletal, although in such a young athletic woman, I think this is unlikely. With her mild elevation in PA pressures, mild congestive heart failure is a possibility; however, her normal chest x-ray and low BNP levels do not support this. I am not certain what led to Francisca's symptoms, but I feel we have ruled out serious life-threatening postoperative complications. I have a call into her pediatric dermatologist to discuss and copies of her studies have been made. I feel the patient would be appropriate to be discharged from the hospital without additional testing and I have advised her to avoid highly-salty foods going forward. I am a bit concerned that if we give her [id number] nonsteroidals and this is reflux, it could worsen the symptoms, so I think p.r.n. Tylenol and nonsteroidals and if she has recurrent events and keeping careful documentation of circumstances surrounding the onset in the future. Thank you for allowing me to assist in this nice young woman's care. CC: 1. Jerald Martinez MD; 2. Dr. Shaun Buchanan, [facility], [employer], work phone number [phone] [id number]/[facility] #: [id number] [facility]ITAL[facility]yleen
== END 2016-10-03 17:22 | disposition home or self-care (01) ==
LOC: ED 14:42 → MEDTELE 23:56
PROVIDERS: ADMIT Hospitalist; ATTEND Internal Medicine
DX: R07.9 Chest pain, unspecified (principal); E03.9 Hypothyroidism, unspecified; Z95.3 Presence of xenogenic heart valve; B19.20 Unspecified viral hepatitis C without hepatic coma; I45.10 Unspecified right bundle-branch block; R00.1 Bradycardia, unspecified; I77.819 Aortic ectasia, unspecified site; Z79.82 Long term (current) use of aspirin; Z79.899 Other long term (current) drug therapy; Z98.890 Other specified postprocedural states; Z32.02 Encounter for pregnancy test, result negative
CPT/HCPCS: 36415; 71020; 71275; 80053; 83605; 83880; 84443; 84484; 84702; 85025; 85652; 86140; 93005; 93306; 99284; A9270-GY; G0378; Q9967